=== PATIENT | male | born 1945 | race Caucasian/White ===

== ENCOUNTER 2017-04-21 07:27 | Inpatient (IN) | payer OTHER, MEDICARE ==
[~2017-04-21] VITALS: Ht 167.6 cm; Wt 81.2 kg
[~2017-04-21 07:27] MED LIST: ASCO500T PO; ASPI1TAB57 PO; BACL10TA PO; HYDR-3288 PO; PRED20 PO; SIMV40TA PO
[2017-04-21] MEDS ORDERED: ACETAMINOPHEN 1000 MG/100 ML 100 ML IV ONE (07:29)
[2017-04-21] MEDS ORDERED: HYDROmorphone HCL PF 2 MG/ML VIAL ONE (07:29)
[2017-04-21] MEDS ORDERED: BUPIVACAINE/EPINEPHRINE 0.25% PF 10 ML VIAL ONE (07:43)
[2017-04-21] MEDS ORDERED: GENTAMICIN SULFATE 80 MG/2 ML VIAL ONE (07:43)
[2017-04-21] MEDS ORDERED: METOPROLOL TARTRATE 25 MG TAB PO PRN (08:00)
[2017-04-21] MEDS ORDERED: SODIUM CHLORID 0.9% 500 ML IV PRN (08:00)
[2017-04-21] MEDS ORDERED: POVIDONE IODINE 7.5% SCRUB 118 ML BOTTLE TOPICAL SCH (08:00)
[2017-04-21] MEDS ORDERED: VANCOMYCIN 1000 MG/NS 250 ML (for <70 kg) IV SCH ×2 (08:00)
[2017-04-21] MEDS ORDERED: CHLORHEXIDINE GLUCONATE 2 % 1 PACK (2 CLOTHS) TOPICAL PRN (08:00)
[2017-04-21] MEDS ORDERED: ceFAZolin 2 GM PREMIX 50 ML IV SCH (08:00)
[2017-04-21] MEDS ORDERED: POVIDONE IODINE 5% (ANTISEPSIS KIT) 4 APPLICATIONS EACH NARE PRN (08:00)
[2017-04-21] MEDS ORDERED: LACTATED RINGER'S 1000 ML IV PRN (08:00)
[2017-04-21] MEDS ORDERED: FAMOTIDINE 20 MG/2 ML VIAL ONE (08:15)
[2017-04-21 08:42] LABS: BASOPHIL # 0.1 TH/MM3 (0-0.2); BASOPHIL % 0.7 % (0.0-2.0); EOSINOPHIL # 0.1 TH/MM3 (0-0.4); EOSINOPHIL % 0.9 % (0.0-4.0); HEMATOCRIT 41.8 % (39.0-51.0); HEMO FLAGS DIFF FINAL; LYMPH % 20.2 % (9.0-44.0); LYMPHOCYTE # 1.7 TH/MM3 (1.0-4.8); MEAN CELL VOLUME 85.2 FL (80.0-100.0); MEAN CORPUSCULAR HGB CONC 34.1 % (32.0-36.0); MONO % 6.9 % (0.0-8.0); NEUT % 71.3 % (16.0-70.0); PLATELET COUNT 214 TH/MM3 (150-450); RED BLOOD COUNT 4.91 MIL/MM3 (4.50-5.90); RED CELL DISTRIBUTION WIDTH 13.9 % (11.6-17.2); WHITE BLOOD COUNT 8.3 TH/MM3 (4.0-11.0)
[2017-04-21] MEDS ORDERED: ROCURONIUM INJ 50 MG/5 ML SYRINGE IV PUSH ONE (12:00)
[2017-04-21] MEDS ORDERED: DEXAMETHASONE SOD PHOS 4 MG/ML VIAL IV ONE (12:00)
[2017-04-21] MEDS ORDERED: LIDOCAINE HCL 1% PF 5 ML AMPULE OTHER ONE (12:00)
[2017-04-21] MEDS ORDERED: NEOSTIGMINE 3 MG/3 ML SYR IV ONE (12:00)
[2017-04-21] MEDS ORDERED: LACTATED RINGER'S 1000 ML INJ 1,000 ML IV ONE (12:00)
[2017-04-21] MEDS ORDERED: ONDANSETRON HCL 4 MG/2 ML VIAL IV PUSH ONE (12:00)
[2017-04-21] MEDS ORDERED: SODIUM CHLOR 0.9% 1000 ML INJ 2,000 ML IV ONE (12:00)
[2017-04-21] MEDS ORDERED: MIDAZOLAM HCL 2 MG/2 ML VIAL IV ONE (12:00)
[2017-04-21] MEDS ORDERED: ceFAZolin INJ 1,000 MG VIAL IV ONE (12:00)
[2017-04-21] MEDS ORDERED: SODIUM CHLOR 0.9% 250 ML INJ 250 ML IV ONE (12:00)
[2017-04-21] MEDS ORDERED: PHENYLEPHRINE HCL 10 MG/ML VIAL OTHER ONE (12:00)
[2017-04-21] MEDS ORDERED: PROPOFOL 200 MG/20 ML AMP IV ONE (12:00)
[2017-04-21] MEDS ORDERED: GLYCOPYRROLATE 1 MG/5 ML SYRINGE IV PUSH ONE (12:00)
[2017-04-21] MEDS ORDERED: SODIUM CHLORIDE 0.9% FLUSH 5 ML FLUSH IVF PRN (14:45)
[2017-04-21] MEDS ORDERED: MORPHINE SULFATE 8 MG/ML INJ IV PUSH PRN (14:45)
[2017-04-21] MEDS ORDERED: SOD PHOSPHATE/SOD BIPHOSPHATE (ADULT) ENEMA 133ML PR PRN (14:45)
[2017-04-21] MEDS ORDERED: ACETAMINOPHEN/HYDROcodone 325 MG/7.5 MG TAB PO PRN (14:45)
[2017-04-21] MEDS ORDERED: Post-op Orders (for Pharmacy) MISC XX ONE (14:45)
[2017-04-21] MEDS ORDERED: MORPHINE SULFATE 30 MG/30 ML PCA IV SCH (14:45)
[2017-04-21] MEDS ORDERED: BISACODYL 10 MG SUPP RECTAL PRN (14:45)
[2017-04-21] MEDS ORDERED: ALUMINUM/MAGNESIUM/SIMETH 30 ML CUP PO PRN (14:45)
[2017-04-21] MEDS ORDERED: ONDANSETRON HCL 4 MG/2 ML VIAL IV PUSH PRN (14:45)
[2017-04-21] MEDS ORDERED: NALOXONE HCL 0.4 MG/ML AMP IV PUSH PRN (14:45)
--- NOTE | 2017-04-21 14:49 | PD.OP ---
cc: Lewis Tillman MD Operative Report Date of Surgery: Apr 21, 2017 Preoperative Diagnosis: Recurrent herniated nucleus pulposus L4 5. Left lumbosacral radiculopathy, severe. 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 Revision lumbar laminotomy right L4 5 with lateral recess decompression. Posterior spinal fusion, L4 5. Posterior spinal segmental instrumentation, L4 5. Posterior lateral interbody fusion L4 5. Placement of interbody cage, L4 5. Bone grafting of the lumbar spine Anesthesia: Gen. Surgeon: Lewis Tillman Town Clerk(s): KATEY Jimenez Operation and Findings: EBL: 200 cc INDICATION: This patient is a 71-year-old white male who approximately one year ago came to left-sided lumbar laminectomy with resection of the sequestered herniated disc. This was done as an outpatient and the patient did very well. He was discharged by from my care but came back developing radiating left leg pain about 6-8 weeks ago. It has become debilitating to where he can almost not walk. Studies show evidence of a large sequestered disc herniation L4 5 the left extending below the disc space. He presents for revision laminectomy and fusion NOTE: Shanna Jimenez PA-C was present for the entire surgical procedure as my first coat operator. In my medical opinion her skill and care was necessary for the proper management of this patient. PROCEDURE: The patient was brought to the operating room and anesthetized in the supine position. The patient was rolled to a prone position on a Curtis frame on a Maurice table. All pressure points were protected in the back was scrubbed with alcohol followed by Hibiclens followed by ChloraPrep and draped sterilely. A timeout was done and antibiotics were given. AP and lateral radiographic images were used to identify the proper levels and perform skin markings. We started with a midline exposure. We started first the left midline but extended to a bilateral exposure out to the facet joint at the L4 5 level. A portion of the posterior spinous process was taken down. A revision laminotomy to the left was accomplished with a high-speed bur. Very carefully were able to work along the edge of the facet joint. The crossing L5 nerve root was very adherent with dense amount of scar tissue. In order to have better exposure, we extended across midline performing a laminectomy on the contralateral right- hand side and a lateral recess decompression. This would allow exposure for placement of the instrumentation system. Returning back to the left side we were able to slowly work underneath the crossing L5 nerve root. A large sequestered disc herniation was found in multiple pieces. This extended all the way down to almost the midportion of the pedicle of L5. The crossing L5 nerve root was completely freed up. The disc space was approached. A total discectomy was accomplished. This is a very degenerative and unstable level. There was significant widening of the facet joint of about 3 mm almost 4 mm. The disc space was emptied completely. Cartilage was curetted from the endplates. This was irrigated copiously and then approximately 20 cc of demineralized bone matrix mixed with post autogenous bone graft and stem cells was impacted into the disc space. A tapered Staxx cage was positioned and opened to 11 mm. Additional bone grafting was placed in the disc space. The wound was irrigated copious. The nerve root was completely without compression. Hemostasis was controlled. The facet joints were opened from posterior. These were then packed with bone graft. The facet link system was utilized. This was held provisionally while 2 K wires were placed across the facet joint to the base of the pedicle and into the edge of the vertebral body. Alignment was satisfactory and position was checked in AP and lateral plane. Proper length screws were positioned and tightened according to production cost estimator's recommendation and locked to the plate. The crossing lock system was also locked with the cross-link. The system was very stable. The wound was irrigated copiously hemostasis was controlled the deep fascia was approximated with interrupted #1 Vicryl suture. Subcutaneous tissue was approximated with 2-0 Vicryl suture and skin with running intradermal 3-0 Vicryl followed by benzoin and Steri-Strips The sponge count needle counts and instrument counts were all correct. The patient tolerated procedure well as taken recovery room in satisfactory condition FINDINGS: This was an unstable level. There was a large sequestered disc herniation. The decompression was very satisfactory. No complication was appreciated. Lewis Tillman MD Apr 21, 2017 14:49
[2017-04-21] MEDS ORDERED: HYDR-3580 PO (14:50)
--- NOTE | 2017-04-21 14:52 | PD.ORT.PN ---
Subjective Post Op Day #: 0 Subjective Remarks Status post lumbar fusion Objective Result Diagram: 04/21/17 0828 Assessment & Plan Assessment and Plan Recurrent herniated nucleus pulposus L4 5, left. Left lumbar radiculopathy. Instability lumbar spine. Revision lumbar laminectomy and posterior spinal fusion with instrumentation, POD #1. PLAN: Out of bed with brace. [place] as needed for pain. Dry dressing change. Discharge to home, probably Tuesday. Before surgery he had severe radiating left leg pain with weakness mostly involving the left extensor hallucis longus. No complication during surgery. It seemed very straightforward. [place] for pain, prescription is written Lewis Tillman MD Apr 21, 2017 14:52
[2017-04-21] MEDS ORDERED: DO NOT ADM ANY ANTICOAGULANT DRUGS PRN (14:55)
[2017-04-21] MEDS: LACTATED RINGER'S 1000 ML INJ 1,000 ML IV SCH (15:16)
[2017-04-21] MEDS ORDERED: *morphine SULFATE 8 MG/ML PERIprocedure ONLY ONE (16:08)
--- NOTE | 2017-04-21 16:46 | RADRPT ---
EXAM DATE/TIME: 04/21/2017 14:09 [facility] COMPARISON: No previous studies available for comparison. INDICATIONS : Post-op L4-L5 posterior lumbar fusion. MEDICAL HISTORY : None. SURGICAL HISTORY : Lumbar laminectomy. ENCOUNTER: Initial ACUITY: 1 day PAIN SCORE: Non-responsive. LOCATION: Lumbar spine. FINDINGS: Two view examination was performed. Postsurgical changes are identified at the L4-5 level. Vertebral body cage is identified within the L4-5 disc. A posterior fusion apparatus is identified along the posterior elements at L4 and 5. CONCLUSION: Status post posterior fusion and cage placement at L4-5. Gordy Haq MD on April 21, 2017 at 16:42 Board Certified Radiologist. This report was verified electronically.
[2017-04-21] MEDS: BACLOFEN 10 MG TAB PO SCH (18:47)
[2017-04-21 18:53] VITALS: BP 145/82; PULSE 79; RESP 18; TEMP 98.2; O2SAT 92
[2017-04-21 20:00] VITALS: BP 129/48; PULSE 57; RESP 20; TEMP 98.4; O2SAT 97
[2017-04-21] MEDS: SODIUM CHLORIDE 0.9% FLUSH 5 ML FLUSH IVF SCH (20:27)
[2017-04-21] MEDS: PRAVASTATIN SOD 80 MG TAB PO SCH (20:27)
[2017-04-21] MEDS ORDERED: ZOLPIDEM TARTRATE 5 MG TAB PO PRN (21:00)
[2017-04-21] MEDS: PCA - TOTAL MG MORPHINE DELIVERED PER SHIFT SCH (22:00)
[2017-04-22] VITALS: BP 101/52; PULSE 61; RESP 20; TEMP 97.8; O2SAT 97
[2017-04-22 04:00] VITALS: BP 102/49; PULSE 60; RESP 20; TEMP 97.9; O2SAT 94
[2017-04-22] MEDS: LACTATED RINGER'S 1000 ML INJ 1,000 ML IV SCH ×3 (04:40→20:45)
[2017-04-22] MEDS: PCA - TOTAL MG MORPHINE DELIVERED PER SHIFT SCH ×3 (06:13→20:45)
[2017-04-22 08:00] VITALS: BP 104/53; PULSE 66; RESP 18; TEMP 98.4; O2SAT 92
[2017-04-22] MEDS: SODIUM CHLORIDE 0.9% FLUSH 5 ML FLUSH IVF SCH ×2 (09:00→20:44)
[2017-04-22] MEDS: predniSONE 10 MG TAB PO SCH (09:08)
[2017-04-22] MEDS: BACLOFEN 10 MG TAB PO SCH ×3 (09:08→18:25)
[2017-04-22 10:24] LABS: HEMATOCRIT 38.4 % (39.0-51.0); REVIEW FLAG FINAL
[2017-04-22 12:00] VITALS: BP 114/64; PULSE 80; RESP 18; TEMP 98.9; O2SAT 93
--- NOTE | 2017-04-22 12:43 | PD.ORT.PN ---
Subjective Post Op Day #: 1 Pain Scale: 7 Subjective Remarks The patient is awake and alert and answers questions properly. It is at the bedside. He is having difficulty moving about getting out of bed. His has concerns about him being discharged today. He complains of back pain. He denies leg pain. He also relates a cough. Objective Vitals Vital Signs Date Time Temp Pulse Resp B/P (MAP) Pulse Ox O2 Delivery O2 Flow Rate FiO2 04/22/17 08:00 98.4 66 18 104/53 (70) 92 04/22/17 06:13 17 04/22/17 04:00 97.9 60 20 102/49 (66) 94 04/22/17 00:00 97.8 61 20 101/52 (68) 97 04/21/17 22:00 18 04/21/17 20:00 98.4 57 20 129/48 (75) 97 04/21/17 18:53 98.2 79 18 145/82 (103) 92 04/21/17 18:00 97.3 52 12 140/65 (90) 100 Nasal Cannula 2 04/21/17 17:00 56 20 151/64 (93) 100 04/21/17 16:45 61 17 112/59 (76) 99 04/21/17 16:30 59 12 116/56 (76) 97 04/21/17 16:15 57 17 133/59 (83) 97 04/21/17 16:00 57 16 129/60 (83) 99 04/21/17 15:45 55 10 132/56 (81) 97 04/21/17 15:30 58 16 116/58 (77) 96 04/21/17 15:16 12 04/21/17 15:15 94 13 113/54 (73) 94 Nasal Cannula 2 04/21/17 15:05 97.3 70 12 119/57 (77) 94 Nasal Cannula 2 I/O 04/21/17 04/21/17 04/21/17 04/22/17 04/22/17 04/22/17 07:00 15:00 23:00 07:00 15:00 23:00 Intake Total 2800 ml 440 ml 1560 ml Output Total 475 ml 1020 ml Balance 2325 ml 440 ml 540 ml Intake Oral 200 ml 720 ml IV Total 240 ml 840 ml Other 2800 ml Output Urine Total 200 ml 1000 ml Emesis 20 ml Estimated Blood Loss 275 ml Result Diagram: 04/22/17 1005 Imaging Last 48 hours Impressions Lumbar Spine X-Ray 04/21/17 0000 Signed Impressions: Service Date/Time: April 14:09 - CONCLUSION: Status post posterior fusion and cage placement at L4-5. Gordy Haq MD Procedures Revision lumbar laminectomy and fusion 04/21/17 Objective Remarks His dressing is dry and intact. He has no localizing signs of extremity discomfort. His motor and sensory examinations are intact. Assessment & Plan Ortho Post Op Day #: 1 Problem List: Assessment and Plan Recurrent herniated nucleus pulposus L4 5, left. Left lumbar radiculopathy. Instability lumbar spine. Revision lumbar laminectomy and posterior spinal fusion with instrumentation, POD #1. PLAN: Out of bed with brace. [place] as needed for pain. Dry dressing change. Discharge to home, Original plan was for today. The patient and his however do not feel he is ready. Will assess progress through today. Johnny Robles MD Apr 22, 2017 12:43
[2017-04-22 16:00] VITALS: BP 120/69; PULSE 78; RESP 18; TEMP 99.1; O2SAT 91
[2017-04-22 19:00] VITALS: BP 125/55; PULSE 73; RESP 17; TEMP 97.5; O2SAT 97
[2017-04-22] MEDS: DOCUSATE SODIUM 100 MG CAP PO SCH (20:43)
[2017-04-22] MEDS: PRAVASTATIN SOD 80 MG TAB PO SCH (20:44)
[2017-04-23] VITALS: BP_SYST 115; BP_SYST 99; BP_DIAS 50; BP_DIAS 52; PULSE 79; PULSE 98; RESP 16; RESP 18; TEMP 97.4; TEMP 99.7; O2SAT 91; O2SAT 94
[2017-04-23] MEDS: PCA - TOTAL MG MORPHINE DELIVERED PER SHIFT SCH (05:59)
[2017-04-23 06:00] VITALS: TEMP 99.3
[2017-04-23 07:32] VITALS: BP 133/62; PULSE 82; RESP 18; TEMP 100.1; O2SAT 92
[2017-04-23] MEDS: ACETAMINOPHEN/HYDROcodone 325 MG/7.5 MG TAB PO PRN ×2 (08:59→12:50)
[2017-04-23] MEDS: SODIUM CHLORIDE 0.9% FLUSH 5 ML FLUSH IVF SCH (09:00)
[2017-04-23] MEDS: DOCUSATE SODIUM 100 MG CAP PO SCH (09:00)
[2017-04-23] MEDS: predniSONE 10 MG TAB PO SCH (09:00)
[2017-04-23] MEDS: BACLOFEN 10 MG TAB PO SCH ×2 (09:00→12:49)
[2017-04-23] MEDS ORDERED: WALKER WHEELS/F1 MIS (10:08)
--- NOTE | 2017-04-23 10:23 | PD.ORT.PN ---
Subjective Subjective Remarks Patient states feeling better. Abdominal pain improving, passing gas. Spouse at bedside. Objective Vitals Vital Signs Date Time Temp Pulse Resp B/P (MAP) Pulse Ox O2 Delivery O2 Flow Rate FiO2 04/23/17 07:32 100.1 82 18 133/62 (85) 92 04/23/17 06:00 99.3 04/23/17 00:00 99.7 79 16 115/52 (73) 91 04/22/17 19:20 Room Air 04/22/17 19:00 97.5 73 17 125/55 (78) 97 04/22/17 16:00 99.1 78 18 120/69 (86) 91 04/22/17 14:00 18 04/22/17 12:00 98.9 80 18 114/64 (81) 93 I/O 04/22/17 04/22/17 04/22/17 04/23/17 04/23/17 04/23/17 07:00 15:00 23:00 07:00 15:00 23:00 Intake Total 1560 ml 480 ml 1441 ml 940 ml Output Total 1020 ml 1600 ml Balance 540 ml 480 ml 1441 ml -660 ml Intake Oral 720 ml 480 ml 480 ml 480 ml IV Total 840 ml 961 ml 460 ml Output Urine Total 1000 ml 1600 ml Emesis 20 ml # Voids 6 3 # Bowel Movements 0 0 0 Result Diagram: 04/22/17 1005 Imaging Last 48 hours Impressions Lumbar Spine X-Ray 04/21/17 0000 Signed Impressions: Service Date/Time: April 14:09 - CONCLUSION: Status post posterior fusion and cage placement at L4-5. Gordy Haq MD Procedures Revision lumbar laminectomy and fusion 04/21/17 Objective Remarks His dressing is dry and intact. He has no localizing signs of extremity discomfort. His motor and sensory examinations are intact. Assessment & Plan Assessment and Plan Recurrent herniated nucleus pulposus L4 5, left. Left lumbar radiculopathy. Instability lumbar spine. Revision lumbar laminectomy and posterior spinal fusion with instrumentation, POD #1. PLAN: Out of bed with brace. [place] as needed for pain. Dry dressing change. Orthopedically stable for discharge Discharge to home F/U with Dr. Lewis Tillman in office Zeyad Matos Apr 23, 2017 10:23
== END 2017-04-23 15:47 | disposition home or self-care (01) | DRG 460 ==
LOC: HSDI 07:27 → N06A 18:25
PROVIDERS: ADMIT Orthopaedic Surgery Orthopaedic Surgery of the Spine; ATTEND Orthopaedic Surgery Orthopaedic Surgery of the Spine
PROC: 0ST20ZZ Resection of Lumbar Vertebral Disc, Open Approach (ICD-10-PCS; 2017-04-21)
PROC: 0SG00AJ Fusion of Lumbar Vertebral Joint with Interbody Fusion Device, Posterior Approach, Anterior Column, Open Approach (ICD-10-PCS; principal; 2017-04-21 10:09)
DX: M51.16 Intervertebral disc disorders with radiculopathy, lumbar region (principal); E78.5 Hyperlipidemia, unspecified; M53.2X6 Spinal instabilities, lumbar region
CPT/HCPCS: 72100; 76000; 85014; 85018; 85025; 86850; 86900; 86901; 94150; J0131; J0690; J1100; J1170; J1580; J2250; J2270; J2370; J2405; J2710; J3010; J3370; J7030; J7050; J7120; J7512